=== PATIENT | male | born 2000 | race Hispanic/Latino ===

== ENCOUNTER 2025-08-03 12:10 | Emergency (ER) | payer BC, OTHER ==
[2025-08-03] MEDS ORDERED: Lidocaine 1% PF 5 ML VIAL ONE (13:38)
[2025-08-03] MEDS ORDERED: Bacitracin 1 PK ONE (13:38)
== END 2025-08-03 15:32 | disposition home or self-care (01) ==
LOC: ERS 12:10
DX: S61.214A Laceration without foreign body of right ring finger without damage to nail, initial encounter (principal); F17.290 Nicotine dependence, other tobacco product, uncomplicated; Z23 Encounter for immunization; W23.1XXA Caught, crushed, jammed, or pinched between stationary objects, initial encounter
CPT/HCPCS: 12001; 90471; 90715